=== PATIENT | female | born 1935 | race Caucasian/White ===

== ENCOUNTER 2019-04-12 14:11 | Outpatient (CLI) | payer MEDICARE, SELFPAY ==
--- NOTE | ~2019-04-12 | XR_ITS ---
EXAMINATION: XR knee LT min 4V DATE: 04/12/2019 14:58 INDICATION: Left knee pain. TECHNIQUE: 4 views of left knee were obtained. COMPARISON: None. FINDINGS: Bone alignment is normal. No fracture. There is mild osteoarthritis of medial and patellofe moral compartments. No knee joint effusion. IMPRESSION: 1. Mild left knee osteoarthritis. Reviewed, dictated and finalized at location A. EL CASHIER
--- NOTE | ~2019-04-12 | XR_ITS ---
EXAMINATION: XR lumbar spine 2-3V DATE: 04/12/2019 14:57 INDICATION: Low back pain. TECHNIQUE: Anteroposterior and lateral views of the lumbar spine, and cone-down lateral view of the l umbosacral junction were obtained. COMPARISON: Lumbar spine radiographs dated 08/17/[address] dated 10/22/2016 FINDINGS: 6 nonrib-bearing lumbar segments, L1-L6. Unchanged 5 mm anterolisthesis L5 on L6 severe associated bi lateral facet osteoarthritis. Vertebral body heights are normal. Mild disc height loss at L5 L6. Ute ining disc heights are relatively preserved with mild degenerative endplate changes at L1-L2 and L2-L 3. Mild to moderate facet osteoarthritis in the remainder of the lumbar spine. Sacral arches are inta ct. Mild bilateral sacroiliac osteoarthritis. Subarticular sclerosis anterosuperiorly at one of the f emoral heads to review of prior CT corresponds to a vascular necrosis which can be seen at both femor al heads. IMPRESSION: 1. Unchanged grade 1 anterolisthesis of L5 on L6 with associated mild disc height loss and severe noemy ateral facet osteoarthritis. Lesser spondylosis in the remainder of the lumbar spine. 2. 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 Reviewed, dictated and finalized at location A. RAFT ENGINEER IMPRESSION: 1. Unchanged grade 1 anterolisthesis of L5 on L6 with associated mild disc heig ht loss and severe bilateral facet osteoarthritis. Lesser spondylosis in the re mainder of the lumbar spine. 2. 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
== END 2019-04-12 14:12 | disposition home or self-care (01) ==
PROVIDERS: PCP Internal Medicine; Visit Provider Nurse Practitioner Family
DX: M54.5 Low back pain (principal); M25.562 Pain in left knee
CPT/HCPCS: 72100; 73564

== ENCOUNTER 2020-09-11 13:24 | Outpatient (CLI) | payer MEDICARE, SELFPAY ==
--- NOTE | ~2020-09-11 | DEXA_ITS ---
Bone Density Report Name: Tiffany Mcmahon Age: 85 Sex: Female Ethnicity: White Date of : 1935 Indication: postmenopausal osteoporosis; monitoring treatment; height loss; asthma or emphysema; hysterectomy; secondary osteoporosis; Referring Provider: Sherie, Kavya Quigley Study: Bone densitometry was performed. Exam Date: September 11, 2020 Accession number: [id number] Bone Density: Region BMD T-score Z-score Classification AP Spine(L1-L4) 0.809 -2.2 0.7 Osteopenia Femoral Neck (Left) 0.584 -2.4 0.1 Osteopenia Total Hip (Left) 0.679 -2.2 0.1 Osteopenia Femoral Neck (Right) 0.594 -2.3 0.2 Osteopenia Total Hip (Right) 0.644 -2.4 -0.2 Osteopenia Femoral Neck Mean 0.589 -2.3 0.1 Osteopenia Total Hip Mean 0.661 -2.3 -0.1 Osteopenia World Health Organization criteria for BMD impression classify patients as: Normal (T-score at or above -1.0), Osteopenia (T-score between -1.0 and -2.5), or Osteoporosis (T-score at or below -2.5). 10-year Fracture Risk: FRAX not reported because: Treated for osteoporosis Previous Exams: Region Exam Age BMD T-score BMD Change BMD Change Date g/cm2 vs Baseline vs Previous AP Spine (L1-L4) 09/11/2020 85 0.809 -2.2 0.017 (2.2%)# 0.052 (6.9%)# 07/03/2017 82 0.757 -2.6 -0.035 (-4.4%) 0.001 (0.2%) 11/25/2013 78 0.756 -2.6 -0.036 (-4.6%) -0.036 (-4.6%) 02/15/2008 72 0.792 -2.3 Total Hip(Left) 09/11/2020 85 0.679 -2.2 0.000 (0.0%)# -0.040 (-5.6%) 07/03/2017 82 0.719 -1.8 0.040 (5.9%)* 0.043 (6.3%)* 11/25/2013 78 0.676 -2.2 -0.002 (-0.4%) -0.002 (-0.4%) 02/15/2008 72 0.678 -2.2 Total Hip(Right) 09/11/2020 85 0.644 -2.4 0.240 (59.4%)# 0.211 (48.8%)# 11/25/2013 78 0.433 -4.2 0.029 (7.2%)* 0.029 (7.2%)* 02/15/2008 72 0.404 -4.4 *Denotes significance at 95% confidence level, LSC for AP Spine = 0.022 g/cm2, LSC for Total Hip = 0.027 g/cm2 # Denotes dissimilar scan types or analysis methods Clinical Information Provided by Patient: Has secondary osteoporosis Is being treated for osteoporosis Has used the following medications: Vitamin D, Calcium Has the following medical conditions: Asthma or Emphysema, Hysterectomy Patient maximum height was 62 Menopause Age: 52 No regular weight bearing exercise Drinks caffeinated beverages Onset of menses at age 16 Number of children 4 Impression: The patient has low bone mass, based on the Right
== END 2020-09-11 13:25 | disposition home or self-care (01) ==
LOC: CHSIMG 13:30
PROVIDERS: PCP Internal Medicine; Visit Provider Nurse Practitioner Family
DX: M81.0 Age-related osteoporosis without current pathological fracture (principal)
CPT/HCPCS: 77080

== ENCOUNTER 2020-09-18 13:39 | Outpatient (CLI) | payer MEDICARE, SELFPAY ==
[2020-09-18 14:39] LABS: SARS-CoV-2 RNA PCR Negative (Negative)
== END 2020-09-18 13:40 | disposition home or self-care (01) ==
LOC: CHSLAB 13:42
PROVIDERS: PCP Internal Medicine; Visit Provider Nurse Practitioner Family
DX: J06.9 Acute upper respiratory infection, unspecified (principal); Z20.822 Contact with and (suspected) exposure to COVID-19
CPT/HCPCS: C9803; U0003; U0005

== ENCOUNTER 2021-06-26 09:13 | Outpatient (CLI) | payer MEDICARE, SELFPAY ==
--- NOTE | ~2021-06-26 | CT_ITS ---
EXAMINATION: CT abdomen pelvis wo/w con DATE: 06/26/2021 10:12 INDICATION: Lower abdominal pain, hematuria TECHNIQUE: Computed tomography (CT) of the abdomen and pelvis was performed without intravenous contr ast. CT of the abdomen and pelvis was then performed with a total of 130 mL Omnipaque 350 intravenous contrast using a double-bolus technique for simultaneous opacification of the renal parenchyma and r enal collecting system. The dose-length product (DLP) was 637.11 mGy-cm. Automated exposure control a nd iterative reconstruction technique were employed. COMPARISON: None FINDINGS: Minimal dependent atelectasis is present in the lung bases. There is small sliding hiatal h ernia. The heart size is normal. Punctate calcifications in an otherwise normal spleen likely represe nt healed granulomatous disease. The liver, pancreas, gallbladder, and adrenal glands are normal. No stones are identified in the kidneys, ureters, or bladder. There is no hydronephrosis or hydroureter. No suspicious renal or urothelial lesion is identified. Portions of the ureters are not opacified ho wever no obstructing mass is seen. There is calcified atherosclerosis of the aorta and many of the ot her arteries. No pathologically enlarged abdominal or pelvic lymph nodes are identified. There is no free intraperitoneal gas or evidence of bowel obstruction. Colonic diverticulosis is present without evidence of diverticulitis. There is moderate lumbar spondylosis. IMPRESSION: 1. No CT correlate for the patient's symptoms. No suspicious renal or urothelial lesion identified. N o urinary tract calculi, hydronephrosis, or hydroureter. Reviewed, dictated and finalized at location F. IMPRESSION: 1. No CT correlate for the patient's symptoms. No suspicious renal or urothelia l lesion identified. No urinary tract calculi, hydronephrosis, or hydroureter.
== END 2021-06-26 09:14 | disposition home or self-care (01) ==
PROVIDERS: PCP Internal Medicine; Visit Provider Internal Medicine
DX: R10.9 Unspecified abdominal pain (principal); R31.9 Hematuria, unspecified
CPT/HCPCS: 74178; Q9967

== ENCOUNTER 2021-12-25 11:14 | Emergency (ER) | payer MEDICARE, SELFPAY ==
--- NOTE | ~2021-12-25 | CT_ITS ---
EXAMINATION: CT diagnostic chest wo con DATE: 12/25/2021 11:58 INDICATION: Left-sided chest pain after fall TECHNIQUE: Computed tomography (CT) of the chest was performed without intravenous contrast. The dose -length product (DLP) was 126.43 mGy-cm. Automated exposure control and iterative reconstruction tech nique were employed. COMPARISON: None FINDINGS: There is mild atelectasis. No pleural effusion or pneumothorax. No pathologically enlarged thoracic lymph nodes are identified. The heart size is normal. Calcified coronary artery atherosclero sis is noted. There is a minimally displaced fracture at the posterolateral aspect of the left sevent h rib. There appear to be nondisplaced fractures of the left eighth and ninth ribs. There is moderate thoracic spondylosis. IMPRESSION: 1. Mildly displaced fracture of the left seventh rib and possible nondisplaced fractures of the left eighth and ninth ribs. Reviewed, dictated and finalized at location A.
[2021-12-25 11:19] VITALS: BP 164/96; PULSE 89; RESP 17; TEMP 36.9; O2SAT 96
[2021-12-25 11:35] VITALS: BP 164/96; PULSE 81; RESP 18; TEMP 36.4; O2SAT 95
--- NOTE | 2021-12-25 11:46 | PC.NURSE ---
RN to room to medicate pt. Pt states that she does not want morphine at this time, as she is concerned it will be too strong for her. Pt informed that RN will hold medication and it can be given at any time if pt changes her mind.
--- NOTE | 2021-12-25 12:53 | ED.FALL ---
HPI - Fall General Chief Complaint: Fall Stated Complaint: fell Thursday right side pain goes around back Time Seen by Provider: 12/25/21 11:18 Source: patient, family and RN notes reviewed Mode of arrival: ambulatory Limitations: no limitations History of Present Illness HPI Narrative: left moises-lateral middle ribs painful, after a fall MD complaint: fall Onset (ago): day(s) (3) Fall from: standing Place fall occurred: home Loss of consciousness: none Prolonged down time: no Symptoms prior to fall: none Context: tripped/slipped Location of injury: chest Severity: mild Severity scale (1-10): 4 Quality: dull and aching Associated symptoms (after fall): chest pain (left chest wall pain) Related Data Home Medications Medication Instructions Recorded Confirmed Diovan 1 tablet DAILY 12/25/21 12/25/21 Imitrex 50 mg DAILY PRN Headache 12/25/21 12/25/21 aspirin 81 mg DAILY 12/25/21 12/25/21 fluticasone propionate 220 1 puff inhalation DAILY 12/25/21 12/25/21 mcg/actuation HFA aerosol inhaler (Flovent HFA) hydrochlorothiazide 12.5 mg capsule 12.5 mg DAILY 12/25/21 12/25/21 losartan 50 mg tablet 50 mg DAILY 12/25/21 12/25/21 pantoprazole 20 mg tablet,delayed 20 mg PO DAILY 12/25/21 12/25/21 release Allergies Allergy/AdvReac Type Severity Reaction Status Date / Time amoxicillin Allergy Unknown Unknown Verified 12/25/21 11:28 codeine Allergy Unknown Unknown Verified 12/25/21 11:28 gabapentin Allergy Unknown Unknown Verified 12/25/21 11:28 Sulfa (Sulfonamide Allergy Unknown Unknown Verified 12/25/21 11:28 Antibiotics) Chicken Meat Allergy Severe SOB Uncoded 12/25/21 11:28 Chocolate Allergy Severe SOB Uncoded 12/25/21 11:28 MSG Allergy Severe HEADACHES Uncoded 12/25/21 11:28 ANTIBIOTICS Allergy Unknown PT CANT Uncoded 12/25/21 11:28 REMEMBER Review of Systems Review of Systems: All systems reviewed & are unremarkable except as noted in HPI and below Constitutional: Constitutional: Reports no additional constitutional complaints Eyes: Eyes: Reports no additional eye complaints ENT: Reports system reviewed and no additional complaints, except as documented Cardiovascular: Cardiovascular: Reports no additional cardiovascular complaints Respiratory: Respiratory: Reports no additional respiratory complaints Comments: chest wall pain Gastrointestinal: Gastrointestinal: Reports no additional gastrointestinal complaints Genitourinary: Genitourinary: Reports no additional female genitourinary complaints Musculoskeletal: Musculoskeletal: Reports no additional musculoskeletal complaints Integumentary/Breasts: Skin/Breast: Reports system reviewed and no additional complaints, except as docu Neurologic: Reports system reviewed and no additional complaints, except as documented Psychiatric: Psychiatric: Reports no additional psychiatric complaints Endocrine: Endocrine: Reports no additional endocrine complaints Hematologic/Lymphatic: Hematologic/Lymphatic: Reports no additional hematologic/lymphatic complaints Allergic/Immunologic: Allergic/Immunologic: Reports no additional allergic/immunologic complaints PMFSH Past Medical History Medical History Left rib fracture Family History Family History Sibling Diabetes mellitus Carcinoma of colon Malignant neoplasm of prostate Mother Family history of dementia Other Family history of allergic disorder Hypertension Social History Social History Smoking status: Never smoker Alcohol intake: never Exam Const: General: healthy appearing, no acute distress and well nourished Nutritional Appearance: well nourished Orientation/consciousness: patient oriented x3 Limitations: no limitations HENMT: Head: normal to inspection Ears: external ears normal, TM's normal bilateral
[2021-12-25 13:15] VITALS: BP 161/96; PULSE 85; RESP 16; O2SAT 95
== END 2021-12-25 13:16 | disposition home or self-care (01) ==
PROVIDERS: Emergency Provider Emergency Medicine; PCP Internal Medicine
DX: S22.32XA Fracture of one rib, left side, initial encounter for closed fracture (principal); W19.XXXA Unspecified fall, initial encounter
CPT/HCPCS: 71250; 99284

== ENCOUNTER 2022-10-15 11:21 | Outpatient (CLI) | payer MEDICARE, SELFPAY ==
[2022-10-15 11:37] LABS: Hematocrit 40.5 % (35.0-42.0); Hemoglobin 13.2 g/dL (11.7-13.8); Mean Corpuscular HGB Conc 32.6 g/dL (32.0-36.0); Mean Corpuscular Hemoglobin 30.5 pg (27.0-31.0); Mean Corpuscular Volume 93.5 fL (78.0-102.0); Mean Platelet Volume 9.3 fl (9.2-11.8); Platelet Count Result 332 K/mm3 (150-420); Red Blood Count 4.33 M/mm3 (4.20-5.40); Red Cell Distribution Width 13.2 % (11.6-14.4)
[2022-10-15 11:42] LABS: Appearance Urine Clear (Clear); Bilirubin Urine Negative (Negative); Blood Urine Trace-Intact (Negative); Color Urine Light Yellow (Yellow); Glucose Urine UA Negative (Negative); Ketones Urine Negative (Negative); Leukocyte Esterase Ur Negative (Negative); Nitrate Urine Negative (Negative); Protein Urine Negative (Negative); Urobilinogen Urine 0.2 mg/dL (0.2-1.0)
[2022-10-15 12:23] LABS: Add Urine Microscopic? YES; Bacteria Urine Rare /hpf; RBC Urine None seen /hpf (0-2); Squamous Epithelial Cell Urine Rare /hpf (Few); WBC Urine None seen /hpf (0-3)
[2022-10-15 12:40] LABS: Band Neutrophils Percent 0 % (0-6); Eosinophils Absolute Manual 0.07 K/mm3 (0.02-0.5); Eosinophils Percent Manual 1 % (1-6); Lymphocytes Absolute Manual 3.08 K/mm3 (1.1-4.5); Lymphocytes Percent Manual 44 % (18-44); Monocytes Absolute Manual 0.42 K/mm3 (0.1-0.90); Monocytes Percent Manual 6 % (3-9); Neutrophils Absolute Manual 3.43 K/mm3 (1.7-7.2); Neutrophils Percent Manual 49 % (46-73); Platelet Estimate Adequate (Adequate); Total Cells Counted 100
[2022-10-15 12:56] LABS: Alanine Aminotransferase 13 U/L (14-59); Albumin Level 3.3 g/dL (3.4-5.0); Alkaline Phosphatase 84 U/L (46-116); Anion Gap 10 mmol/L (8-16); Aspartate Amino Transferase 12 U/L (15-37); Bilirubin,Total 0.4 mg/dL (0.00-1.00); Blood Urea Nitrogen 13 mg/dL (7-18); Calcium 9.3 mg/dL (8.5-10.1); Carbon Dioxide 30 mmol/L (21-32); Chloride 100 mmol/L (98-108); Cholesterol 153 mg/dL (0-200); Estimated Glomerular Filt Rate 48; Glucose 91 mg/dL (70-99); HDL Direct 41 mg/dL (40-60); LDL Cholesterol Calculated 59 mg/dL (<130); Osmolality Calculated 290 mOsm/kg (285-295); Sodium 140 mmol/L (136-145); Thyroid Stimulating Hormone 4.18 uIU/mL (0.36-3.74); Total Protein 7.4 g/dL (6.4-8.2); Triglycerides 265 mg/dL (0-150)
[2022-10-19 05:15] LABS: Methylmalonic Acid 213 nmol/L (87-318)
== END 2022-10-15 11:22 | disposition home or self-care (01) ==
LOC: CHSLAB 11:26
PROVIDERS: PCP Internal Medicine; Visit Provider Internal Medicine
DX: I10 Essential (primary) hypertension (principal); E78.5 Hyperlipidemia, unspecified; M81.0 Age-related osteoporosis without current pathological fracture; G31.84 Mild cognitive impairment of uncertain or unknown etiology
CPT/HCPCS: 36415; 80053; 80061; 81001; 83921; 84443; 85025

== ENCOUNTER 2022-10-22 12:01 | Outpatient (CLI) | payer MEDICARE, SELFPAY ==
--- NOTE | ~2022-10-22 | DEXA_ITS ---
Bone Density Report Name: CHINEDU RAINEY Age: 87 Sex: Female Ethnicity: White Date of : 1935 Indication: postmenopausal; screening for osteoporosis; height loss; asthma or emphysema; hysterectomy; Referring Provider: Yo Branch Study: Bone densitometry was performed. Exam Date: October 22, 2022 Accession number: [id number] Bone Density: Region BMD T-score Z-score Classification AP Spine(L1-L4) 0.814 -2.1 0.8 Osteopenia Femoral Neck (Left) 0.594 -2.3 0.2 Osteopenia Total Hip (Left) 0.667 -2.3 0.1 Osteopenia Femoral Neck (Right) 0.556 -2.6 -0.1 Osteoporosis Total Hip (Right) 0.665 -2.3 0.1 Osteopenia Femoral Neck Mean 0.575 -2.5 0.1 Osteoporosis Total Hip Mean 0.666 -2.3 0.1 Osteopenia World Health Organization criteria for BMD impression classify patients as: Normal (T-score at or above -1.0), Osteopenia (T-score between -1.0 and -2.5), or Osteoporosis (T-score at or below -2.5). 10-year Fracture Risk: FRAX not reported because: Some T-score for Spine Total or Hip Total or Femoral Neck at or below -2.5 Treated for osteoporosis Clinical Information Provided by Patient: Is being treated for osteoporosis Has used the following medications: Boniva (i.e. ibandronate), Vitamin D, Calcium Has the following medical conditions: Asthma or Emphysema, Hysterectomy Patient maximum height was 62 Menopause Age: 52 No regular weight bearing exercise Drinks caffeinated beverages Onset of menses at age 16 Number of children 4 Impression: The patient has osteoporosis, based on the Right Femoral Neck T-score. Discussion: It is important to ask patients whether they are taking their medications and to encourage continued and appropriate compliance with their osteoporosis therapies to reduce fracture risk. It is also important to review their risk factors and encourage appropriate calcium and vitamin D intakes, exercise, fall prevention and other lifestyle measures. Follow-Up: Consider a repeat BMD and Vertebral Fracture Assessment (VFA) exam in 2 years or sooner if medically necessary, to reassess this patient's status. Reported by: Dr. Adilson Brantley on 10/22/2022 12:29:00 PM. Reviewed, dictated and finalized at location AOrlando VALENTE
== END 2022-10-22 12:02 | disposition home or self-care (01) ==
LOC: CHSIMG 12:02
PROVIDERS: PCP Internal Medicine; Visit Provider Internal Medicine
DX: Z78.0 Asymptomatic menopausal state (principal); M85.89 Other specified disorders of bone density and structure, multiple sites; M81.0 Age-related osteoporosis without current pathological fracture
CPT/HCPCS: 77080

== ENCOUNTER 2022-10-23 15:09 | Outpatient (CLI) | payer MEDICARE, SELFPAY ==
[2022-10-23 15:27] LABS: Appearance Urine Clear (Clear); Bilirubin Urine Negative (Negative); Blood Urine Trace-Intact (Negative); Color Urine Light Yellow (Yellow); Glucose Urine UA Negative (Negative); Ketones Urine Negative (Negative); Leukocyte Esterase Ur Trace LEU/UL (Negative); Nitrate Urine Negative (Negative); Protein Urine Negative (Negative); Specific Grav Ur <= 1.005 (1.010-1.020); Urobilinogen Urine 0.2 mg/dL (0.2-1.0)
[2022-10-23 15:30] LABS: Add Urine Microscopic? YES; Squamous Epithelial Cell Urine Rare /hpf (Few); WBC Urine 0-5 /hpf (0-3)
[2022-10-23 15:31] LABS: Bacteria Urine Rare /hpf
[2022-10-23 15:49] LABS: Alanine Aminotransferase 14 U/L (14-59); Albumin Level 3.4 g/dL (3.4-5.0); Alkaline Phosphatase 80 U/L (46-116); Anion Gap 10 mmol/L (8-16); Aspartate Amino Transferase 19 U/L (15-37); Bilirubin,Total 0.4 mg/dL (0.00-1.00); Blood Urea Nitrogen 14 mg/dL (7-18); Calcium 9.4 mg/dL (8.5-10.1); Carbon Dioxide 30 mmol/L (21-32); Chloride 100 mmol/L (98-108); Estimated Glomerular Filt Rate 51; Glucose 92 mg/dL (70-99); Osmolality Calculated 290 mOsm/kg (285-295); Potassium 3.8 mmol/L (3.5-5.1); Sodium 140 mmol/L (136-145); Total Protein 7.4 g/dL (6.4-8.2)
[2022-10-27 21:15] LABS: Vitamin D 25 Hydroxy 74 ng/mL (30-100)
== END 2022-10-23 15:10 | disposition home or self-care (01) ==
LOC: CHSLAB 15:12
PROVIDERS: PCP Internal Medicine; Visit Provider Nurse Practitioner Family
DX: M81.0 Age-related osteoporosis without current pathological fracture (principal); I10 Essential (primary) hypertension; R94.4 Abnormal results of kidney function studies; R31.9 Hematuria, unspecified
CPT/HCPCS: 36415; 80053; 81001; 82306

== ENCOUNTER 2022-10-31 11:29 | Outpatient (CLI) | payer MEDICARE, SELFPAY ==
[2022-10-31 11:51] LABS: Appearance Urine Clear (Clear); Bilirubin Urine Negative (Negative); Blood Urine Trace-Intact (Negative); Color Urine Yellow (Yellow); Glucose Urine UA Negative (Negative); Ketones Urine Negative (Negative); Leukocyte Esterase Ur Negative (Negative); Nitrate Urine Negative (Negative); Protein Urine Negative (Negative); Urobilinogen Urine 0.2 mg/dL (0.2-1.0)
[2022-10-31 11:58] LABS: Add Urine Microscopic? YES; Bacteria Urine Trace /hpf; RBC Urine 0-2 /hpf (0-2); WBC Urine None seen /hpf (0-3)
== END 2022-10-31 11:30 | disposition home or self-care (01) ==
LOC: CHSLAB 11:31
PROVIDERS: PCP Internal Medicine; Visit Provider Nurse Practitioner Family
DX: R31.9 Hematuria, unspecified (principal)
CPT/HCPCS: 81001; 87086; 88112

== ENCOUNTER 2022-11-14 12:08 | Outpatient (CLI) | payer MEDICARE, SELFPAY ==
--- NOTE | ~2022-11-14 | US_ITS ---
Renal-Bladder ultrasound Clinical History: Hematuria Technique: Real-time sonographic imaging of the kidneys and urinary bladder was performed. Findings: The right kidney measures 8.3 cm in length and the left kidney measures 7.4 cm. There is no hydronephrosis or renal calculus identified. Renal cortical echogenicity is within normal limits. No renal mass lesion is identified. The urinary bladder is moderately distended at the time of this exam. No intraluminal echoes are iden tified. No abnormal wall thickening is seen. Impression: Unremarkable ultrasound of the kidneys and urinary bladder. Reviewed, dictated and finalized at location M. Impression: Unremarkable ultrasound of the kidneys and urinary bladder.
== END 2022-11-14 12:09 | disposition home or self-care (01) ==
PROVIDERS: PCP Internal Medicine; Visit Provider Nurse Practitioner Family
DX: R31.9 Hematuria, unspecified (principal)
CPT/HCPCS: 76775

== ENCOUNTER 2022-11-25 12:34 | Outpatient (CLI) | payer MEDICARE, SELFPAY ==
[2022-11-25 12:53] VITALS: BMI 17.2
[2022-11-25 12:55] VITALS: BP 156/80; PULSE 72; RESP 14; O2SAT 98
[2022-11-25] MEDS: ZOLEDRONIC ACID 5 MG/100 ML 100 ML 400 MG IVPB (12:55)
--- NOTE | 2022-11-25 13:18 | PC.NURSE ---
Patient here for IV Reclast. Education given. All concerns answered. IV Reclast administered. See MAR. Tolerated well. Safe exit of hospital per amb with dtr.
== END 2022-11-25 12:35 | disposition home or self-care (01) ==
PROVIDERS: PCP Internal Medicine; Visit Provider Internal Medicine
DX: M81.0 Age-related osteoporosis without current pathological fracture (principal)
CPT/HCPCS: 96374; J3489

== ENCOUNTER 2023-05-25 12:06 | Outpatient (CLI) | payer MEDICARE, SELFPAY ==
--- NOTE | ~2023-05-25 | XR_ITS ---
AP lateral views of the left hip Clinical history: Pain Findings: No acute fracture or dislocation is seen. Osseous alignment is anatomic. There is mild left hip joint degenerative change. Soft tissues are unremarkable. Impression: Mild left hip joint degenerative change. Reviewed, dictated and finalized at location . Impression: Mild left hip joint degenerative change.
--- NOTE | ~2023-05-25 | XR_ITS ---
Lumbosacral Spine: AP and lateral views Clinical History: Pain COMPARISON: 04/12/2019 Findings: Stable 1 cm anterolisthesis of L4 over L5. No acute fracture evident. Moderate to advanced facet arthropathy throughout the lumbar spine is similar to prior exam. The intervertebral disc spac es are preserved. The sacroiliac joints are normally outlined. Impression: Stable 1 cm anterolisthesis of L4 over L5. Moderate degenerative spondylosis, similar to prior exam. Reviewed, dictated and finalized at location . Impression: Stable 1 cm anterolisthesis of L4 over L5. Moderate degenerative spondylosis, similar to prior exam.
== END 2023-05-25 12:07 | disposition home or self-care (01) ==
LOC: CHSIMG 12:08
PROVIDERS: PCP Internal Medicine; Visit Provider Internal Medicine
DX: M79.605 Pain in left leg (principal); M43.06 Spondylolysis, lumbar region
CPT/HCPCS: 72100; 73502

== ENCOUNTER 2023-07-21 14:18 | Outpatient (CLI) | payer MEDICARE, SELFPAY ==
[2023-07-21 14:43] LABS: Basophils Absolute Auto 0.08 K/mm3 (0.00-0.10); Eosinophils Absolute Auto 0.16 K/mm3 (0.02-0.50); Hematocrit 41.5 % (35.0-42.0); Hemoglobin 13.5 g/dL (11.7-13.8); Immature Granulocyte Absolute 0.03 K/mm3 (0.00-0.00); Immature Granulocyte Percent A 0.4 % (0.0-0.0); Lymphocytes Absolute Auto 3.11 K/mm3 (1.10-4.50); Lymphocytes Percent Auto 38.9 % (18.0-42.0); Mean Corpuscular HGB Conc 32.5 g/dL (32-36); Mean Corpuscular Hemoglobin 31.1 pg (27.0-31.0); Mean Corpuscular Volume 95.6 fL (78.0-102.0); Mean Platelet Volume 9.5 fl (9.2-11.8); Monocytes Absolute Auto 0.69 K/mm3 (0.10-0.90); Monocytes Percent Auto 8.6 % (2.0-11.0); Neutrophils Absolute Auto 3.93 K/mm3 (1.70-7.20); Neutrophils Percent Auto 49.1 % (50.0-70.0); Platelet Count Result 305 K/mm3 (150-420); Red Blood Count 4.34 M/mm3 (4.20-5.40); Red Cell Distribution Width 13.2 % (11.6-14.4)
[2023-07-21 15:06] LABS: Alanine Aminotransferase 19 U/L (14-59); Albumin Level 3.7 g/dL (3.4-5.0); Alkaline Phosphatase 59 U/L (46-116); Anion Gap 9 mmol/L (4-12); Aspartate Amino Transferase 20 U/L (15-37); Bilirubin,Total 0.7 mg/dL (0.00-1.00); Blood Urea Nitrogen 15 mg/dL (7-18); Calcium 10.1 mg/dL (8.5-10.1); Carbon Dioxide 31 mmol/L (21-32); Chloride 99 mmol/L (98-108); Cholesterol 159 mg/dL (0-200); Estimated Glomerular Filt Rate 58; Glucose 97 mg/dL (70-99); HDL Direct 48 mg/dL (40-60); LDL Cholesterol Calculated 51 mg/dL (<130); Osmolality Calculated 288 mOsm/kg (285-295); Potassium 3.8 mmol/L (3.5-5.1); Sodium 139 mmol/L (136-145); Thyroid Stimulating Hormone 3.41 uIU/mL (0.36-3.74); Total Protein 7.4 g/dL (6.4-8.2); Triglycerides 298 mg/dL (0-150)
== END 2023-07-21 14:19 | disposition home or self-care (01) ==
PROVIDERS: PCP Internal Medicine; Visit Provider Internal Medicine
DX: I10 Essential (primary) hypertension (principal); J45.909 Unspecified asthma, uncomplicated; E78.5 Hyperlipidemia, unspecified
CPT/HCPCS: 36415; 80053; 80061; 84443; 85025

== ENCOUNTER 2023-12-27 00:50 | Emergency (ER) | payer MEDICARE, SELFPAY ==
--- NOTE | ~2023-12-27 | XR_ITS ---
Left Shoulder Technique: AP and scapular Y views were obtained. Clinical History: Pain Findings: There is significant elevation of the distal left clavicle relative to the coracoid, as wel l as widening of the acromioclavicular space. Findings are consistent with grade 3 AC joint separatio n. No acute fracture evident. There is mild glenohumeral joint degenerative change. Subacromial spur present. Soft tissues are unremarkable. Impression: Grade 3 AC joint separation. Degenerative changes, as above. Reviewed, dictated and finalized at location M. Impression: Grade 3 AC joint separation. Degenerative changes, as above.
[2023-12-27 00:51] VITALS: BP 148/96; PULSE 96; RESP 18; TEMP 36.2; O2SAT 95
--- NOTE | 2023-12-27 01:33 | ED.GENADULT ---
HPI - General Adult General Chief complaint: Extremity Injury, Upper Stated complaint: shoulder pain Time Seen by Provider: 12/27/23 00:59 History of Present Illness HPI narrative: Patient experienced a mechanical fall from standing in her garage on 12/26/2023. She states she slipped and fell backwards and on her shoulder. She has says that she might have felt dizzy afterwards but has not been feeling dizzy today. She has been having pain in her left shoulder since that time whether she is able to move that arm. She denies any other injuries in the event. She does not believe that she hit her head or his injuries anywhere else. she denies chest pain or shortness of breath? Related Data Home Medications Medication Instructions Recorded Confirmed Diovan 1 tablet DAILY 12/25/21 11/25/22 Imitrex 50 mg DAILY PRN Headache 12/25/21 11/25/22 aspirin 81 mg DAILY 12/25/21 11/25/22 fluticasone propionate 220 1 puff inhalation DAILY 12/25/21 11/25/22 mcg/actuation HFA aerosol inhaler (Flovent HFA) hydrochlorothiazide 12.5 mg capsule 12.5 mg DAILY 12/25/21 11/25/22 losartan 50 mg tablet 50 mg DAILY 12/25/21 11/25/22 pantoprazole 20 mg tablet,delayed 20 mg PO DAILY 12/25/21 11/25/22 release Allergies Allergy/AdvReac Type Severity Reaction Status Date / Time amoxicillin Allergy Unknown Unknown Verified 12/25/21 11:28 codeine Allergy Unknown Unknown Verified 12/25/21 11:28 gabapentin Allergy Unknown Unknown Verified 12/25/21 11:28 Sulfa (Sulfonamide Allergy Unknown Unknown Verified 12/25/21 11:28 Antibiotics) Chicken Meat Allergy Severe SOB Uncoded 12/25/21 11:28 Chocolate Allergy Severe SOB Uncoded 12/25/21 11:28 MSG Allergy Severe HEADACHES Uncoded 12/25/21 11:28 ANTIBIOTICS Allergy Unknown PT CANT Uncoded 12/25/21 11:28 REMEMBER PMFSH Past Medical History Medical History Left rib fracture Family History Family History Sibling Diabetes mellitus Carcinoma of colon Malignant neoplasm of prostate Mother Family history of dementia Other Family history of allergic disorder Hypertension Social History Social History Smoking status: Never smoker Alcohol intake: never Exam Narrative: GEN: Awake, alert, and appropriate to situation. Well appearing, well nourished, nontoxic, NAD.? HEENT: No rhinorrhea noted, mucous membranes moist. No scleral icterus or conjunctival injection.? CV: Normal rate, regular rhythm, S1S2 no M/G/R. 2+ distal pulses all extremities. No peripheral edema noted.? PULM: Non-labored respiration. Clear to auscultation bilaterally. No wheezes, rales, rhonchi.? GI: Abdomen soft, non -tender to palpation. No rigidity, distention or guarding. ? NEURO: Normal speech. No lateralizing or focal deficits noted.? she has significant ecchymosis and bruising to her trapezius muscle and posterior shoulder. There is no obvious deformity however. Posterior shoulder and trapezius is tender anteriorly nontender nontender over acromioclavicular joint. active range of motion is limited by pain passive range of motion is intact. strength not formally assessed but patient noted to be moving her arm without issue during conversation. Distal circulation is intact. x-ray of the patient's left shoulder does not show any obvious fracture or dislocation possible acute or chronic separation of the AC joint. Course Vital Signs Vital signs: Vital Signs Temperature 36.2 C L 12/27/23 00:51 Pulse Rate 96 12/27/23 00:51 Respiratory Rate 18 12/27/23 00:51 Blood Pressure 148/96 H 12/27/23 00:51 Pulse Oximetry 95 12/27/23 00:51 Temperature 36.2 C L 12/27/23 00:51 Pulse Rate 96 12/27/23 00:51 Respiratory Rate 18 12/27/23 00:51 Blood Pressure 148/96 H 12/27/23 00:51 Pulse Oximetry 95 12/27/23 0
[2023-12-27] MEDS: ACETAMINOPHEN 500 MG TABLET 1000 MG PO (02:09)
[2023-12-27 02:19] VITALS: BP 133/72; PULSE 74; RESP 18; TEMP 36.6; O2SAT 96
== END 2023-12-27 02:19 | disposition home or self-care (01) ==
PROVIDERS: Emergency Provider Family Medicine
DX: M25.512 Pain in left shoulder (principal); W01.0XXA Fall on same level from slipping, tripping and stumbling without subsequent striking against object, initial encounter; Y92.008 Other place in unspecified non-institutional (private) residence as the place of occurrence of the external cause
CPT/HCPCS: 73030; 99283; A4565

== ENCOUNTER 2024-02-18 12:17 | Outpatient (CLI) | payer MEDICARE, SELFPAY ==
[2024-02-18 12:45] VITALS: BP 128/66; PULSE 74; RESP 18; TEMP 36.6; O2SAT 97; BMI 22.8
[2024-02-18] MEDS: ZOLEDRONIC ACID 5 MG/100 ML 100 ML 400 MG IVPB (12:55)
== END 2024-02-18 12:57 | disposition home or self-care (01) ==
PROVIDERS: PCP Internal Medicine; Visit Provider Internal Medicine
DX: M81.0 Age-related osteoporosis without current pathological fracture (principal)
CPT/HCPCS: 96374; J3489

== ENCOUNTER 2024-12-13 11:48 | Outpatient (CLI) | payer MEDICARE, SELFPAY ==
--- NOTE | ~2024-12-13 | CT_ITS ---
EXAMINATION: CTA chest PE protocol DATE: 12/13/2024 16:52 CDT INDICATION: Upper left chest pain. Discomfort. TECHNIQUE: Computed tomographic angiography (CTA) of the chest was performed with 100 mL Omnipaque-350 intravenous contrast. The dose-length product was 156.41 mGy-cm. Maximum intensity projection 3D-reconstructions of the aorta and other arteries were constructed by the technologist on a separate workstation. COMPARISON: CT chest without contrast April 30 FINDINGS: Lungs and pleura: [ No pulmonary emboli identified.] No pneumothorax. No pleural effusion. Small to moderate-sized patchy opacities in the lower lobes. Mediastinum and pulmonary stephanie: [ No mass or adenopathy.] Axillary/intramammary and supraclavicular: [ No mass or adenopathy.] Heart and great vessels: [ Heart is mildly enlarged..[ [ No pericardial effusion.] [ No aneurysm.] Coronary artery calcifications. Chest Wall: [ Unremarkable.] Upper Abdomen: [ No significant findings.] Osseous structures: [ No acute fracture or destructive lesion.] [ Multilevel degenerative change in the visualized spine.] Additional findings: There is a too small to characterize low-attenuation lesion in the liver. IMPRESSION: 1. No pulmonary emboli identified. 2. Small to moderate-sized patchy opacities in the lower lobes. Differential includes atelectasis or infiltrates. Reviewed, dictated and finalized at location Q. IMPRESSION: 1. No pulmonary emboli identified. 2. Small to moderate-sized patchy opacities in the lower lobes. Differential in cludes atelectasis or infiltrates.
[2024-12-13 12:00] LABS: Hematocrit 42.8 % (35.0-42.0); Hemoglobin 13.8 g/dL (11.7-13.8); Mean Corpuscular HGB Conc 32.2 g/dL (32-36); Mean Corpuscular Hemoglobin 30.8 pg (27.0-31.0); Mean Corpuscular Volume 95.5 fL (78.0-102.0); Platelet Count Result 343 K/mm3 (150-420); Red Blood Count 4.48 M/mm3 (4.20-5.40); White Blood Count 9.0 K/mm3 (4.8-10.8)
[2024-12-13 12:12] LABS: Alanine Aminotransferase 15 U/L (6-35); Albumin Level 4.2 g/dL (3.5-5.1); Alkaline Phosphatase 69 U/L (38-126); Anion Gap 8 mmol/L (4-12); Aspartate Amino Transferase 27 U/L (14-36); Bilirubin,Total 0.6 mg/dL (0.2-1.3); Blood Urea Nitrogen 13 mg/dL (7-17); Calcium 10.0 mg/dL (8.4-10.2); Carbon Dioxide 30 mmol/L (22-30); Chloride 99 mmol/L (98-107); Creatine Kinase 59 U/L (30-135); Estimated Glomerular Filt Rate 51; Glucose 96 mg/dL (65-110); Osmolality Calculated 284 mOsm/kg (285-295); Potassium 4.1 mmol/L (3.4-5.0); Sodium 137 mmol/L (137-145); Total Protein 9.1 g/dL (6.3-8.2)
[2024-12-13 12:24] LABS: NT Pro B Type Natriuretic Pept 470 pg/mL (19.9-100); Troponin I < 0.012 ng/mL (0.000-0.034)
--- OUTSIDE RECORDS SUMMARY | 2024-12-13 13:03 | XMS_ITS | Clinical Summary ---
Author Organization [facility] Address [address] [place] [address] Care Team Providers Care Batter Mixer Helper Name Role Phone Unavailable Primary Care Provider Unavailabl e Social History Tobacco Use Types Packs/Day Years Used Date Smoking Tobacco: Never Comments Unknown Sex and Gender Information Value Date Recorded Sex Assigned at Not on file Legal Sex Female 9:55 PM CDT Gender Identity Not on file Sexual Orientation Not on file Last Filed Vital Signs Vital Sign Reading Time Taken Comments Blood Pressure 116/58 08/12/2016 12:27 PM CDT Pulse 94 01/08/2016 11:54 AM CDT Temperature - - Respiratory Rate 18 12/25/2014 1:56 PM CDT R egular Oxygen Saturation - - Inhaled Oxygen Concentration - - Weight 58.1 kg (128 lb) 08/12/2016 12:27 PM CDT Height 154.9 cm (5' 1) 08/12/2016 12:27 PM CDT Body Mass Index 24.19 08/12/2016 12:27 PM CDT Plan of Treatment Health Maintenance Due Date Last Done Comments DTaP, Tdap and Td Vaccines ( 1 - Tdap) 1954 Annual Medicare Wellness Visit 2002 RSV Immunization or 60+ Years (1 - 1-dose 75+ series) 2012 Zoster Vaccines (2 of 3) 05/04/2012 03/09/2012 Pneumococcal Vaccine: 50+ Ye ars (2 of 2 - PCV) 03/09/2015 03/09/2014 COVID-19 Vaccine (1 - 2023-2 5 season) 2024 Influenza Adult (#1) 2024 03/09/2014 Meningococcal B Vaccine Aged Out No l onger eligible based on patient's age to complete this topic Meningococcal Vaccine Aged Out No cecilia elena eligible based on patient's age to complete this topic RSV Immunizations Under 20 Months Aged Out No longer eligible based on patient's age to complete this topic Insurance
--- OUTSIDE RECORDS SUMMARY | 2024-12-13 13:03 | XMS_ITS | Clinical Summary ---
Author Organization [facility] [address] Address [address] [place] [address] Phone Care Team Providers Care Experimental Display Builder Name Role Phone Yo Branch MD Primary Care Provider [phone] Allergies Active Allergy Reactions Criticality Noted Date Comments Amoxicillin Codeine Moxifloxacin Potassium Quinolones Sulfa (Sulfonamide Antibiotics) Medications levalbuterol (XOPENEX) 1.25 mg/3 mL nebulizer solution inhale 3 milliliter (1.25MG) by nebulization route every 8 hours 0 2 Active albuterol HFA (PROAIR HFA) 90 mcg/actuation inhaler INHALE TWO PUFFS EVERY 4 HOURS NEEDED 9 Inhaler 5 3 Active SUMAtriptan (IMITREX) 50 mg tablet take 1 tablet by oral route after onset of migraine; may repeat after 2 hours if headache returns,not to exceed 200mg in 24hrs 0 0 5 Active famotidine (PEPCID) 40 mg tablet take 1 tablet by oral route every day at bedtime 0 0 5 Active simvastatin (ZOCOR) 20 mg tablet take 1 tablet by oral route every day in the evening 0 0 5 Active valsartan-hydro CHLOROthiazide (DIOVAN HCT) 160-12.5 mg per tablet take 1 tablet by oral route every day 0 0 5 Active fluticasone (FLOVENT HFA) 220 mcg/actuation inhaler inhale 1 puff by inhalation route 2 times every day 3 Inhaler 3 5 Active fluticasone (FLONASE) 50 mcg/actuation nasal spray inhale 2 spray by intranasal route every day in each nostril 1 spray 3 5 Active aspirin 81 mg chewable tablet chew 1 tablet by oral route every day 1 0 5 Active raloxifene (EVISTA) 60 mg tablet take 1 tablet by oral route every day 0 0 5 Active triamcinolone (KENALOG) 0.05 % ointmentIndicat ions:Chronic vulvitis Apply 1 g (1 application total) topically 2 (two) times a day. As needed for irritation. 30 g 3 7 Active Active Problems Problem Noted Date Diagnosed Date Osteoporosis 11/21/2014 Overview (06/13/2016): Osteoporosis Dyslipidemia 11/21/2014 Overview (06/13/2016): Dyslipidemia Atopic rhinitis 01/13/2014 Overview (06/13/2016): Allergic rhinitis Solitary pulmonary nodule 01/13/2014 Overview (06/13/2016): Solitary pulmonary nodule Asthma 01/13/2014 Overview (06/13/2016): Asthma Exacerbation of asthma 07/23/2013 Overview (06/12/2016): Asthma exacerbation Acute bronchitis 07/23/2013 Overview (06/12/2016): Acute bronchitis Gastroesophageal reflux disease 07/23/2013 Overview (06/12/2016): Esophageal reflux Hypertension 07/23/2013 Overview (06/13/2016): Hypertension Immunizations Immunization Administration Dates Next Due Pneumococcal Conjugate PCV 13 07/14/2014 Surgical History Surgery Date Site/Laterality Comments APPENDECTOMY Appendectomy CHOLECYSTECTOMY Cholecystectomy KNEE ARTHROPLASTY Knee replacement HIP ARTHROPLASTY Hip replacement OTHER SURGICAL HISTORY lumpectomy 2013 OTHER SURGICAL HISTORY lung bx 2015 CORONARY ANGIOPLASTY Coronary angioplasty OTHER SURGICAL HISTORY Pelvic organ prolapse: Bladder repair OTHER SURGICAL HISTORY Excision vaginal cyst - benign OTHER SURGICAL HISTORY Excision rectal cyst - benign OTHER SURGICAL HISTORY Menorrhagia: Hysterectomy, total - HECTOR-BSO Medical History Medical History Date Comments Hx Other Medical dyslipidemia Hx Other Medical Pelvic organ pr olapse; Comments: RED 11/21/2014 - Hx Other Medical Menorrhagia Family History Medical History Relation Name Comments Prostate cancer Brother 2 Cancer, pros riddle; Cause of : Cancer, prostate Abdominal Aortic Aneurysm Father Ab dominal aortic aneurysm; Cause of : Abdominal aortic aneurysm Coronary artery disease Father Miquel nary artery disease; Brain cancer Maternal Grandmother Cancer, brain; Diabetes Other 1 Family history of Diabetes mellitus; Hypertension Other 2 Family history of Hypertension; Rectal cancer Sister Cancer, rectal ; Relation Name Status Comments Brother 1 Brother 2 Father (Age 59) Maternal Grandmother Other 1 Other 2 Sister Social History Tobacco Use Types Packs/Day Years Used Date Smoking Tobacco: Never Smokeless Tobacco: Never Tobacco Cessation:Counseling Given: Yes Alcohol Use Standard Drinks/Week Comments No 0 (1 standard drink = 0.6 oz pur e alcohol) Comments No Sex and Gender Information Value Date Recorded Sex Assigned at Not on file Legal Sex Female 9: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 Gender Identity Not on file Sexual Orientation Not on file Occupation Industry Job Start Date Job End Date retired Not on file Not on file Not on file Obstetrics History Last Filed Vital Signs Vital Sign Reading Time Taken Comments Blood Pressure 138/94 10/14/2017 2:28 PM CDT Pulse 75 05/18/2015 12:03 PM EAR NOSE THROAT PHYSICIAN Temperature - - Respiratory Rate - - Oxygen Saturation 94% 05/18/2015 12:03 PM EAR NOSE THROAT PHYSICIAN Inhaled Oxygen Concentration - - Weight 58.1 kg (128 lb) 10/14/2017 2:28 PM CDT Height 157.5 cm (5' 2) 10/14/2017 2:28 PM CDT Body Mass Index 23.41 10/14/2017 2:28 PM CDT Plan of Treatment Not on file Insurance [employer] MEDICARE Care Teams Experimental Display Builder Relationship Specialty Start Date End Date Yo Branch MD PCP - General 06/09/11
--- OUTSIDE RECORDS SUMMARY | 2024-12-13 13:03 | XMS_ITS | Patient Health Record ---
Author Organization [facility] Address [address] [place], [place] [id number] Care Team Providers Care Machine Joiner Cementer Name Role Phone REYNA HURLEY Unavailable [phone] Yo Branch Unavailable Unavailable Reason For Referral No Information Medications Medication SIG (Take, Route, Frequency, Duration) Notes Start Date End Date Status 60 ACTUAT fluticasone propionate 0.1 MG/ACTUAT Dry Powder Inhaler [Flovent] INTRAPULMONARY 60 ACTUAT fluticasone propionate 0.1 MG/ACTUAT Dry Powder Inhaler [Flovent]Original [id number] ACTUAT fluticasone propionate 0.1 MG/ACTUAT Dry Powder Inhaler [Flovent] *Reorder from [employer] for eRx and Inter 6 Active Simvastatin 20 MG Oral Tablet ORAL simvastatin 20 MG Oral TabletOriginal Medicationsimvastatin 20 MG Oral Tablet *Reorder from [employer] for eRx and Interaction Alerts* 6 Active [id number] 200 ACTUAT albuterol 0.09 MG/ACTUAT Metered Dose Inhaler INTRAPULMONARY [id number] 200 ACTUAT albuterol 0.09 MG/ACTUAT Metered Dose InhalerOriginal [id number] 200 ACTUAT albuterol 0.09 MG/ACTUAT Metered Dose Inhaler *Reorder from [employer] for eRx and Interaction Alerts* 6 Active aspirin 81 MG Delayed Release Oral Tablet ORAL aspirin 81 MG Delayed Release Oral TabletOriginal Medicationaspirin 81 MG Delayed Release Oral Tablet *Reorder from [employer] for eRx and Interaction Alerts* 6 Active sumatriptan 50 MG Oral Tablet [Imitrex] ORAL sumatriptan 50 MG Oral Tablet [Imitrex]Original Medicationsumatriptan 50 MG Oral Tablet [Imitrex] *Reorder from [facility] for eRx and Interaction Alerts* 6 Active raloxifene hydrochloride 60 MG Oral Tablet ORAL raloxifene hydrochloride 60 MG Oral TabletOriginal Medicationraloxifene hydrochloride 60 MG Oral Tablet *Reorder from [facility] for eRx and Interaction Alerts* 6 Active thioctic acid 100 MG Oral Capsule ORAL thioctic acid 100 MG Oral CapsuleOriginal Medicationthioctic acid 100 MG Oral Capsule *Reorder from [facility] for eRx and Interaction Alerts* 6 Active vitamin E 450 MG Oral Capsule ORAL vitamin E 450 MG Oral CapsuleOriginal Medicationvitamin E 450 MG Oral Capsule *Reorder from [facility] for eRx and Interaction Alerts* 6 Active valsartan 320 MG Oral Tablet [Diovan] ORAL valsartan 320 MG Oral Tablet [Diovan]Original Medicationvalsartan 320 MG Oral Tablet [Diovan] *Reorder from [facility] for eRx and Interaction Alerts* 6 Active Famotidine 40 MG Oral Tablet ORAL famotidine 40 MG Oral TabletOriginal Medicationfamotidine 40 MG Oral Tablet *[facility] for eRx and Interaction Alerts* 6 Active Plan Of Treatment No Information Insurance Providers Payer Name Payer Address Payer Phone Subscriber Number Group Number Insured Name Patient Relationship to Insured Coverage Start Date Coverage End Date Medicare Part B [facility] [address] [place] [address] [id number] CHINEDU RAINEY Self - patient is the insured Shirin Good [facility] [employer] [address] [place] [address] [id number] CHINEDU RAINEY Self - patient is the insured
== END 2024-12-13 11:49 | disposition home or self-care (01) ==
PROVIDERS: PCP Internal Medicine; Visit Provider Internal Medicine
DX: R53.83 Other fatigue (principal); R07.89 Other chest pain; R06.02 Shortness of breath
CPT/HCPCS: 36415; 71275; 80053; 82550; 82553; 83880; 84484; 85027; 85380; Q9967

== ENCOUNTER 2024-12-16 12:25 | Emergency (ER) | payer MEDICARE, SELFPAY ==
[2024-12-16] VITALS (31 sets, daily range): BP systolic 102–154; BP diastolic 59–83; PULSE 65–98; RESP 12–29; TEMP 36.2–36.7; O2SAT 90–96
--- NOTE | ~2024-12-16 | XR_ITS ---
EXAMINATION: XR chest 2V 12/16/2024 12:56 INDICATION: Pneumonia. Follow-up TECHNIQUE:Frontal and lateral images of the chest were obtained. COMPARISON: CTA chest 12/13/2024 FINDINGS: Heart is mildly enlarged. No pneumothorax. No pleural effusion. No free air the diaphragm. Small opacities in the lower lungs. Calcified granuloma in the left lower lung. IMPRESSION: 1. Small opacities in the mid and lower lungs which represents atelectasis/scarring or infiltrates. If symptoms persist or worsen, consider a short-term follow-up study or additional imaging for further assessment. Reviewed, dictated and finalized at location Q. IMPRESSION: 1. Small opacities in the mid and lower lungs which represents atelectasis/scar ring or infiltrates. If symptoms persist or worsen, consider a short-term follow-up study or additio nal imaging for further assessment.
--- NOTE | 2024-12-16 12:26 | ECG_ITS ---
Test Date: 2024-12-16 12:43:49 Measurements Intervals [place] Rate: 91 P: 69 OH: 171 QRS: -48 QRSD: 89 T: 55 QT: 277 QTc: 342 Interpretive Statements SINUS RHYTHM LEFT ANTERIOR FASCICULAR BLOCK BORDERLINE ST-T WAVE ABNORMALITY- ANTEROLATERAL LEADS BASELINE ARTIFACT- I, III, AVR, AVL, AVF, V1-V6 ABNORMAL ECG No previous ECG available for comparison Electronically Signed On 12-16-2024 12:50:16 CDT by Adan Mejia D.O.
[2024-12-16 12:46] LABS: Hematocrit 42.9 % (35.0-42.0); Hemoglobin 13.8 g/dL (11.7-13.8); Immature Granulocyte Percent A 0.5 % (0.0-0.0); Lymphocytes Absolute Auto 2.50 K/mm3 (1.10-4.50); Mean Corpuscular HGB Conc 32.2 g/dL (32-36); Mean Corpuscular Hemoglobin 30.8 pg (27.0-31.0); Mean Corpuscular Volume 95.8 fL (78.0-102.0); Nucleated Red Blood Cells Absolute Auto 0.00 K/mm3 (0.00-0.00); Nucleated Red Blood Cells Perc 0.0 % (0-0.0); Platelet Count Result 356 K/mm3 (150-420); Red Blood Count 4.48 M/mm3 (4.20-5.40); White Blood Count 7.9 K/mm3 (4.8-10.8)
[2024-12-16 12:59] LABS: Alanine Aminotransferase 14 U/L (6-35); Albumin Level 4.1 g/dL (3.5-5.1); Alkaline Phosphatase 74 U/L (38-126); Anion Gap 8 mmol/L (4-12); Aspartate Amino Transferase 29 U/L (14-36); Bilirubin,Total 0.7 mg/dL (0.2-1.3); Blood Urea Nitrogen 15 mg/dL (7-17); Calcium 9.7 mg/dL (8.4-10.2); Carbon Dioxide 29 mmol/L (22-30); Chloride 100 mmol/L (98-107); Estimated CRCL calculation 28 ml/min; Estimated Glomerular Filt Rate 60; Glucose 101 mg/dL (65-110); Lipase 97 U/L (23-300); Osmolality Calculated 284 mOsm/kg (285-295); Potassium 3.8 mmol/L (3.4-5.0); Sodium 137 mmol/L (137-145); Total Protein 8.8 g/dL (6.3-8.2)
[2024-12-16 13:01] LABS: INR 0.9; Prothrombin Time 10.1 Seconds (9.50-12.1)
[2024-12-16 13:10] LABS: NT Pro B Type Natriuretic Pept 250 pg/mL (19.9-100); Troponin I < 0.012 ng/mL (0.000-0.034)
[2024-12-16] MEDS: ONDANSETRON INJ 4 MG/2 ML VIAL IV PUSH (13:43)
[2024-12-16] MEDS: SODIUM CHLORIDE 0.9% IV 1,000 ML 999 ML IV CONT (13:45)
[2024-12-16 13:47] LABS: Add Urine Microscopic? YES; Appearance Urine Sl Cloudy (Clear); Glucose Urine UA Negative (Negative); Leukocyte Esterase Ur 1+ (Negative); Nitrate Urine Negative (Negative); Specific Grav Ur 1.015 (1.010-1.020)
[2024-12-16 14:56] LABS: Troponin I < 0.012 ng/mL (0.000-0.034)
[2024-12-16 15:13] LABS: Procalcitonin 0.1 ng/mL
--- NOTE | 2024-12-16 15:58 | ED.CHESTPAIN ---
HPI - Chest Pain General Chief Complaint: Chest Pain Stated Complaint: PNEUMONIA, CHEST PAIN WITH INSPIRATION Source: patient and family Mode of arrival: wheelchair History of Present Illness HPI narrative: 89-year-old with a history of GERD, chronic bronchitis, hypertension atrial here with a complains of left-sided chest pain since this morning. Patient states that she was diagnosed with pneumonia and UTI and presently not antibiotic. She denies any fever chills has cough which is son nothing unusual for her. Cough is nonproductive. Denies any nausea or vomiting. Pain is mostly on the left side. MD complaint: chest pain Pertinent past history: other ( Chronic bronchitis) Onset (ago): day(s) Timing of current episode: constant Pain location: left chest Pain radiation: none Quality: aching Relieving factors: nothing Exacerbating factors: nothing Context: recent illness Risk Factors Coronary artery disease risk factors: none Related Data Home Medications ?Medication ?Instructions ?Recorded ?Confirmed ?Last Taken ?Type Diovan 1 tablet BYMOUTH DAILY 12/25/21 02/18/24 02/18/24 History Imitrex 50 mg BYMOUTH DAILY PRN Headache 12/25/21 02/18/24 02/18/24 History aspirin 81 mg BYMOUTH DAILY 12/25/21 02/18/24 02/18/24 History fluticasone propionate 220 1 puff inhalation DAILY 12/25/21 02/18/24 Unknown History mcg/actuation HFA aerosol inhaler (Flovent HFA) hydrochlorothiazide 12.5 mg capsule 12.5 mg PO DAILY 12/25/21 02/18/24 02/18/24 History losartan 50 mg tablet 50 mg PO DAILY 12/25/21 02/18/24 02/18/24 History pantoprazole 20 mg tablet,delayed 20 mg PO DAILY 12/25/21 02/18/24 02/18/24 History release Allergies Allergy/AdvReac Type Severity Reaction Status Date / Time amoxicillin Allergy Unknown Unknown Verified 12/16/24 12:50 codeine Allergy Unknown Unknown Verified 12/16/24 12:50 gabapentin Allergy Unknown Unknown Verified 12/16/24 12:50 Sulfa (Sulfonamide Allergy Unknown Unknown Verified 12/16/24 12:50 Antibiotics) Chicken Meat Allergy Severe SOB Uncoded 12/25/21 11:28 Chocolate Allergy Severe SOB Uncoded 10/19/22 11:28 MSG Allergy Severe HEADACHES Uncoded 12/25/21 11:28 ANTIBIOTICS Allergy Unknown PT CANT Uncoded 12/25/21 11:28 REMEMBER Review of Systems Review of Systems: All systems reviewed & are unremarkable except as noted in HPI and below Constitutional: Constitutional: Reports no additional constitutional complaints Eyes: Eyes: Reports no additional eye complaints ENT: Reports system reviewed and no additional complaints, except as documented Cardiovascular: Cardiovascular: Reports as per HPI Respiratory: Respiratory: Reports as per HPI Gastrointestinal: Gastrointestinal: Reports no additional gastrointestinal complaints Musculoskeletal: Musculoskeletal: Reports no additional musculoskeletal complaints Neurologic: Reports system reviewed and no additional complaints, except as documented [facility] Past Medical History Medical History Left rib fracture Family History Family History Sibling Diabetes mellitus Carcinoma of colon Malignant neoplasm of prostate Mother Family history of dementia Other Family history of allergic disorder Hypertension Social History Social History Smoking status: Never smoker Alcohol intake: never Exam Narrative: GENERAL: Well-appearing, well-nourished, and in no acute distress. HEAD: Normocephalic, atraumatic. EYES: PERRLA and EOMI. ENT: Nares clear, no rhinorrhea or epistaxis. Mucous membranes moist. NECK: Supple. CHEST: Clear to auscultation. No respiratory distress. HEART: Regular rate and rhythm. No murmur heard. Normal peripheral pulses. ABDOMEN: Soft, nontender, nondistended, normal active bowel sounds. EXTREMITIES: Normal range of motion. No edema. SKIN: Warm, dry, no rash. NEURO: No focal deficits. Alert and oriented x3. PSYCH: Normal mood and affect. Course Course Emergency Course: patient had a near-syncopal episode mode she was here in the ER she use the restroom while she was coming on other restroom she felt faint and nauseated. She was orthostatic did give a L of fluid along with IV Zofran patient gradually improved. I did inform her about the lab work, chest x-ray findings. Patient feels much better she prefers to go home. Advised to continue home medication, follow with the primary doctor home Vital Signs Vital signs: Vital Signs Temperature 36.2 C L 10/10/25 12:25 Pulse Rate 93 12/16/24 12:25 Respiratory Rate 21 H 12/16/24 12:25 Blood Pressure 138/76 12/16/24 12:25 Pulse Oximetry 94 12/16/24 12:25 Oxygen Delivery Room Air 12/16/24 12:25 Temperature 36.2 C L 12/16/24 12:25 Pulse Rate 76 12/16/24 13:46 Respiratory Rate 14 12/16/24 13:46 Blood Pressure 119/69 12/16/24 13:46 Pulse Oximetry 92 12/16/24 13:46 Oxygen Delivery Room Air 12/16/24 13:00 MDM - Chest Pain Differential Diagnosis Differential diagnosis: Likely fracture of rib, pneumothorax, unstable angina pectoris and atypical chest pain Medical Records Data Attestation: I reviewed the patient's medical records. Lab Data Attestation: I reviewed the patient's lab results. 12/16/24 12:39 12/16/24 12:39 Labs: Lab Results 12/16/24 12/16/24 12/16/24 Range/Units 12:39 13:41 14:29 WBC 7.9 (4.8-10.8) K/mm3 RBC 4.48 (4.20-5.40) M/mm3 Hgb 13.8 (11.7-13.8) g/dL Hct 42.9 H (35.0-42.0) % MCV 95.8 (78.0-102.0) fL MCH 30.8 (27.0-31.0) pg MCHC 32.2 (32-36) g/dL RDW 12.9 (11.6-14.4) % Plt Count 356 (150-420) K/mm3 MPV 9.1 L (9.2-11.8) fl Immature Gran % (Auto) 0.5 H (0.0-0.0) % Neut % (Auto) 56.0 (50.0-70.0) % Lymph % (Auto) 31.8 (18.0-42.0) % [place] % (Auto) 8.1 (2.0-11.0) % Eos % (Auto) 2.8 (1.0-6.0) % Baso % (Auto) 0.8 (0.0-1.0) % Lymph # (Auto) 2.50 (1.10-4.50) K/mm3 [place] # (Auto) 0.64 (0.10-0.90) K/mm3 Eos # (Auto) 0.22 (0.02-0.50) K/mm3 Baso # (Auto) 0.06 (0.00-0.10) K/mm3 Abs Immat Gran (auto) 0.04 H (0.00-0.00) K/mm3 Absolute Neuts (auto) 4.41 (1.70-7.20) K/mm3 Absolute Nucleated RBC 0.00 (0.00-0.00) K/mm3 Nucleated RBC % 0.0 (0-0.0) % PT 10.1 (9.50-12.1) Seconds INR 0.9 Sodium 137 (137-145) mmol/L Potassium 3.8 (3.4-5.0) mmol/L Chloride 100 (98-107) mmol/L Carbon Dioxide 29 (22-30) mmol/L Anion Gap 8 (4-12) mmol/L BUN 15 (7-17) mg/dL Creatinine 0.89 (0.7-1.0) mg/dL Estim Creat Clear Calc 28 ml/min Estimated GFR 60 (59 - ) Glucose 101 (65-110) mg/dL Calculated Osmolality 284 L (285-295) mOsm/kg Calcium 9.7 (8.4-10.2) mg/dL Total Bilirubin 0.7 (0.2-1.3) mg/dL AST 29 (14-36) U/L ALT 14 (6-35) U/L Alkaline Phosphatase 74 (38-126) U/L Troponin I < 0.012 < 0.012 (0.000-0.034) ng/mL NT-Pro-B Natriuret Pep 250 H (19.9-100) pg/mL Total Protein 8.8 H (6.3-8.2) g/dL Albumin 4.1 (3.5-5.1) g/dL Lipase 97 (23-300) U/L Procalcitonin 0.1 ng/mL Urine Color Yellow (Yellow) Urine Appearance Sl cloudy A (Clear) Urine pH 8.5 H (5.0-8.0) Ur Specific [place] 1.015 (1.010-1.020) Urine Protein Negative (Negative) Urine Glucose (UA) Negative (Negative) Urine Ketones Negative (Negative) Ur Blood (Man) Negative (Negative) Urine Nitrate Negative (Negative) Urine Bilirubin Negative (Negative) Urine Urobilinogen 0.2 (0.2-1.0) mg/dL Ur Leukocyte Esterase 1+ H (Negative) Urine RBC None seen (0-2) /hpf Urine WBC 0-5 (0-3) /hpf Ur Squamous Epith Cells Few (Few) /hpf Amorphous Sediment Moderate H (None) Urine Bacteria Trace (None) /hpf Imaging Data Radiologist's impression: ITS Impressions Chest X-Ray 12/16/24 13:05 IMPRESSION: 1. Small opacities in the mid and lower lungs which represents atelectasis/scarring or infiltrates. If symptoms persist or worsen, consider a short-term follow-up study or additional imaging for further assessment. ECG Data EKG #1: ECG completion date: 12/16/24 ECG completion time: 12:43 EKG Interpretation: normal rate (91), no ectopy, no ST changes, normal QRS and left axis Discharge Plan Discharge Clinical Impression: Weakness Chest pain Qualifiers: Chest pain type: unspecified Qualified Code(s): R07.9 - Chest pain, unspecified Patient Disposition: Home Condition: Stable Instructions: Chest Pain (ED) Additional Instructions: continue home medications , follow with your doctor Patient Language: Greek Prescriptions: No Action losartan 50 mg tablet 50 mg PO DAILY pantoprazole 20 mg tablet,delayed release (DR/EC) 20 mg PO DAILY hydrochlorothiazide 12.5 mg capsule 12.5 mg PO DAILY fluticasone propionate [Flovent HFA] 220 mcg/actuation HFA aerosol inhaler 1 puff INHALATION DAILY Diovan 1 tablet BYMOUTH DAILY Rx Instructions: 160/12.5 mg Imitrex 50 mg BYMOUTH DAILY PRN (Reason: Headache) aspirin 81 mg BYMOUTH DAILY acetaminophen [Tylenol] 325 mg capsule 650 mg PO Q8H PRN (Reason: pain) Qty: 20 0RF tramadol 50 mg tablet 50 mg PO BID Qty: 4 0RF Follow-up/Referrals: Yo Branch MD [Primary Care Provider, Internal Medicine] Time of Disposition: 15:59
== END 2024-12-16 15:59 | disposition home or self-care (01) ==
PROVIDERS: Emergency Provider Family Medicine; PCP Internal Medicine
DX: R53.1 Weakness (principal); R07.9 Chest pain, unspecified; I10 Essential (primary) hypertension
CPT/HCPCS: 36415; 71046; 80053; 81001; 83690; 83880; 84145; 84484; 85025; 85610; 93005; 96361; 96374; 99284; J2405; J7030

== ENCOUNTER 2025-01-06 12:56 | Outpatient (CLI) | payer MEDICARE, SELFPAY ==
--- NOTE | ~2025-01-06 | XR_ITS ---
EXAMINATION: XR chest 2V, 01/06/2025 13:15 CDT HISTORY: pneumonia f/u COMPARISON: No comparisons available. Technique: 2 views obtained. Findings: The lungs are clear, no effusion. No pneumothorax. Heart is normal size. Mediastinal and hilar contours are within normal limits. Bony thorax no acute abnormality. Impression: No acute cardiopulmonary abnormality. Reviewed, dictated and finalized at location P. Impression: No acute cardiopulmonary abnormality.
--- OUTSIDE RECORDS SUMMARY | 2025-01-06 13:01 | XMS_ITS | Clinical Summary ---
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 Gender Identity Not on file Sexual Orientation Not on file Occupation Industry Job Start Date Job End Date retired Not on file Not on file Not on file Obstetrics History Last Filed Vital Signs Vital Sign Reading Time Taken Comments Blood Pressure 138/94 10/14/2017 2:28 PM CDT Pulse 75 05/18/2015 12:03 PM BUNDLE SORTER Temperature - - Respiratory Rate - - Oxygen Saturation 94% 05/18/2015 12:03 PM BUNDLE SORTER Inhaled Oxygen Concentration - - Weight 58.1 kg (128 lb) 10/14/2017 2:28 PM CDT Height 157.5 cm (5' 2) 10/14/2017 2:28 PM CDT Body Mass Index 23.41 10/14/2017 2:28 PM CDT Plan of Treatment Not on file Insurance [employer] MEDICARE Care Teams Examination Supervisor Relationship Specialty Start Date End Date Yo Branch MD PCP - General 06/09/11
--- OUTSIDE RECORDS SUMMARY | 2025-01-06 13:01 | XMS_ITS | Clinical Summary ---
Author Organization [facility] Address [address] [place] [address] Care Team Providers Care Batt Machine Operator Name Role Phone Unavailable Primary Care Provider [...] 2 - PCV) 03/09/2015 03/09/2014 COVID-19 Vaccine ( - 2024-2 6 season) 2024 Influenza Adult (#1) 2024 03/09/2014 Hepatitis A Vaccines Aged Out No long er eligible based on patient's age to complete this topic Meningococcal B Vaccine Aged Out No l onger eligible based on patient's age to complete this topic Meningococcal Vaccine Aged Out No cecilia elena eligible based on patient's age to complete this topic RSV Immunizations Under 20 Months Aged Out No longer eligible based on patient's age to complete this topic Insurance
--- OUTSIDE RECORDS SUMMARY | 2025-01-06 13:01 | XMS_ITS | Patient Health Record ---
Author Organization [facility] Address [address] [place], [place] [id number] Care Team Providers Care Cancer Genetics Assistant Name Role Phone REYNA HURLEY Unavailable [phone] Yo Branch Unavailable Unavailable Reason For Referral No Information Medications Medication SIG (Take, Route, Frequency, Duration) Notes Start Date End Date Status 60 ACTUAT fluticasone propionate 0.1 MG/ACTUAT Dry Powder Inhaler [Flovent] INTRAPULMONARY 60 ACTUAT fluticasone propionate 0.1 MG/ACTUAT Dry Powder Inhaler [Flovent]Original [id number] ACTUAT fluticasone propionate 0.1 MG/ACTUAT Dry Powder Inhaler [Flovent] *Reorder from [facility] for eRx and Inter 6 Active Simvastatin 20 MG Oral Tablet ORAL simvastatin 20 MG Oral TabletOriginal Medicationsimvastatin 20 MG Oral Tablet *Reorder from [facility] for eRx and Interaction Alerts* 6 Active [id number] 200 ACTUAT albuterol 0.09 MG/ACTUAT Metered Dose Inhaler INTRAPULMONARY [id number] 200 ACTUAT albuterol 0.09 MG/ACTUAT Metered Dose InhalerOriginal [id number] 200 ACTUAT albuterol 0.09 MG/ACTUAT Metered Dose Inhaler *Reorder from [facility] Scre[facility] for eRx and Interaction Alerts* 6 Active aspirin 81 MG Delayed Release Oral Tablet ORAL aspirin 81 MG Delayed Release Oral TabletOriginal Medicationaspirin 81 MG Delayed Release Oral Tablet *Reorder from [facility] for eRx and Interaction Alerts* 6 Active sumatriptan 50 MG Oral Tablet [Imitrex] ORAL sumatriptan 50 MG Oral Tablet [Imitrex]Original Medicationsumatriptan 50 MG Oral Tablet [Imitrex] *Reorder from [facility] for eRx and Interaction Alerts* 6 Active raloxifene hydrochloride 60 MG Oral Tablet ORAL raloxifene hydrochloride 60 MG Oral TabletOriginal Medicationraloxifene hydrochloride 60 MG Oral Tablet *Reorder from [facility] for eRx and Interaction Alerts* 6 Active thioctic acid 100 MG Oral Capsule ORAL thioctic acid 100 MG Oral CapsuleOriginal Medicationthioctic acid 100 MG Oral Capsule *Reorder from [facility] for eRx and Interaction Alerts* 6 Active vitamin E 450 MG Oral Capsule ORAL vitamin E 450 MG Oral CapsuleOriginal Medicationvitamin E 450 MG Oral Capsule *Reorder from [facility] for eRx and Interaction Alerts* 6 Active valsartan 320 MG Oral Tablet [Diovan] ORAL valsartan 320 MG Oral Tablet [Diovan]Original Medicationvalsartan 320 MG Oral Tablet [Diovan] *Reorder from [facility] for eRx and Interaction Alerts* 6 Active Famotidine 40 MG Oral Tablet ORAL famotidine 40 MG Oral TabletOriginal Medicationfamotidine 40 MG Oral Tablet *Reorder from [facility] for eRx and Interaction Alerts* 6 Active Social History Social History Additional Details Category Social Info Options Details Migrated Social History Migrated Social History Smoking Status : Never smoked , History of tobacco use : Plan Of Treatment No Information Insurance Providers Payer Name Payer Address Payer Phone Subscriber Number Group Number Insured Name Patient Relationship to Insured Coverage Start Date Coverage End Date Medicare Part B [facility] [address] [place] [address] [id number] CHINEDU RAINEY Self - patient is the insured [facility] [employer] [address] [place] [address] [id number] CHINEDU RAINEY Self - patient is the insured
[2025-01-06 13:11] LABS: Hematocrit 43.2 % (35.0-42.0); Hemoglobin 14.0 g/dL (11.7-13.8); Mean Corpuscular HGB Conc 32.4 g/dL (32-36); Mean Corpuscular Hemoglobin 30.8 pg (27.0-31.0); Mean Corpuscular Volume 95.2 fL (78.0-102.0); Platelet Count Result 315 K/mm3 (150-420); Red Blood Count 4.54 M/mm3 (4.20-5.40); White Blood Count 8.5 K/mm3 (4.8-10.8)
[2025-01-06 13:34] LABS: Add Urine Microscopic? YES; Appearance Urine Clear (Clear); Glucose Urine UA Negative (Negative); Leukocyte Esterase Ur 3+ (Negative); Nitrate Urine Negative (Negative); Specific Grav Ur 1.010 (1.010-1.020)
[2025-01-06 13:50] LABS: Alanine Aminotransferase 13 U/L (6-35); Albumin Level 4.3 g/dL (3.5-5.1); Alkaline Phosphatase 66 U/L (38-126); Anion Gap 7 mmol/L (4-12); Aspartate Amino Transferase 26 U/L (14-36); Bilirubin,Total 0.9 mg/dL (0.2-1.3); Blood Urea Nitrogen 12 mg/dL (7-17); CRP < 0.5 mg/dL (<1.0); Calcium 9.7 mg/dL (8.4-10.2); Carbon Dioxide 30 mmol/L (22-30); Chloride 101 mmol/L (98-107); Estimated Glomerular Filt Rate > 60; Glucose 85 mg/dL (65-110); Osmolality Calculated 284 mOsm/kg (285-295); Potassium 4.3 mmol/L (3.4-5.0); Sodium 138 mmol/L (137-145); Total Protein 7.4 g/dL (6.3-8.2)
== END 2025-01-06 12:57 | disposition home or self-care (01) ==
PROVIDERS: PCP Internal Medicine; Visit Provider Internal Medicine
DX: J18.9 Pneumonia, unspecified organism (principal); R53.83 Other fatigue; R30.0 Dysuria
CPT/HCPCS: 36415; 71046; 80053; 81001; 85027; 86140; 87086

== ENCOUNTER 2025-03-07 11:16 | Outpatient (CLI) | payer MEDICARE, SELFPAY ==
[2025-03-07 11:28] VITALS: BP 159/69; PULSE 66; RESP 18; TEMP 36.6; O2SAT 96
[2025-03-07 11:31] VITALS: BMI 20.8
[2025-03-07] MEDS: ZOLEDRONIC ACID 5 MG/100 ML 100 ML 400 MG IVPB (11:43)
--- OUTSIDE RECORDS SUMMARY | 2025-03-07 12:04 | XMS_ITS | Patient Health Record ---
Author Organization [facility] Address [address] [place], [place] [id number] Care Team Providers Care Medication Aide Name Role Phone REYNA HURLEY Unavailable [phone] Yo Branch Unavailable Unavailable Reason For Referral No Information Medications Medication SIG (Take, Route, Frequency, Duration) Notes Start Date End Date Status 60 ACTUAT fluticasone propionate 0.1 MG/ACTUAT Dry Powder Inhaler [Flovent] INTRAPULMONARY 60 ACTUAT fluticasone propionate 0.1 MG/ACTUAT Dry Powder Inhaler [Flovent]Original [id number] ACTUAT fluticasone propionate 0.1 MG/ACTUAT Dry Powder Inhaler [Flovent] *Reorder from [facility] for eRx and Inter 6 Active Simvastatin 20 MG Oral Tablet ORAL simvastatin 20 MG Oral TabletOriginal Medicationsimvastatin 20 MG Oral Tablet *Reorder from [facility] for eRx and Interaction Alerts* 6 Active [id number] 200 ACTUAT albuterol 0.09 MG/ACTUAT Metered Dose Inhaler INTRAPULMONARY [id number] 200 ACTUAT albuterol 0.09 MG/ACTUAT Metered Dose InhalerOriginal [id number] 200 ACTUAT albuterol 0.09 MG/ACTUAT Metered Dose Inhaler *Reorder from [facility] for eRx and Interaction Alerts* 6 Active aspirin 81 MG Delayed Release Oral Tablet ORAL aspirin 81 MG Delayed Release Oral TabletOriginal Medicationaspirin 81 MG Delayed Release Oral Tablet *Reorder from [facility] for eRx and Interaction Alerts* 6 Active sumatriptan 50 MG Oral Tablet [Imitrex] ORAL sumatriptan 50 MG Oral Tablet [Imitrex]Original Medicationsumatriptan 50 MG Oral Tablet [Imitrex] *Reorder from [facility] for eRx and Interaction Alerts* 6 Active raloxifene hydrochloride 60 MG Oral Tablet ORAL raloxifene hydrochloride 60 MG Oral TabletOriginal Medicationraloxifene hydrochloride 60 MG Oral Tablet *Reorder from [facility] for eRx and Interaction Alerts* 6 Active thioctic acid 100 MG Oral Capsule ORAL thioctic acid 100 MG Oral CapsuleOriginal Medicationthioctic acid 100 MG Oral Capsule *Reorder from [facility] for eRx and Interaction Alerts* 6 Active vitamin E 450 MG Oral Capsule ORAL vitamin E 450 MG Oral CapsuleOriginal Medicationvitamin E 450 MG Oral Capsule *Reorder from [facility] for eRx and Interaction Alerts* 6 Active valsartan 320 MG Oral Tablet [Diovan] ORAL valsartan 320 MG Oral Tablet [Diovan]Original Medicationvalsartan 320 MG Oral Tablet [Diovan] *Reorder from [facility] for eRx and Interaction Alerts* 6 Active Famotidine 40 MG Oral Tablet ORAL famotidine 40 MG Oral TabletOriginal Medicationfamotidine 40 MG Oral Tablet *Reorder from [facility] for eRx and Interaction Alerts* 6 [...] [facility] [address] [place] [address] [id number] CHINEDU RAINEY Self - patient is the insured [facility] [employer] [address] [place] [address] [id number] CHINEDU RAINEY Self - patient is the insured
--- OUTSIDE RECORDS SUMMARY | 2025-03-07 12:04 | XMS_ITS | Clinical Summary ---
Author Organization [facility] Address [address] [place] [address] Care Team Providers Care Cut Off Saw Tender Metal Name Role Phone Unavailable Primary Care Provider [...]
--- OUTSIDE RECORDS SUMMARY | 2025-03-07 12:04 | XMS_ITS | Clinical Summary ---
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 Gender Identity Not on file Sexual Orientation Not on file Occupation Industry Job Start Date Job End Date retired Not on file Not on file Not on file Last Filed Vital Signs Vital Sign Reading Time Taken Comments Blood Pressure 138/94 10/14/2017 2:28 PM CDT Pulse 75 05/18/2015 12:03 PM TELEPHONIC NURSE CASE MANAGER Temperature - - Respiratory Rate - - Oxygen Saturation 94% 05/18/2015 12:03 PM TELEPHONIC NURSE CASE MANAGER Inhaled Oxygen Concentration - - Weight 58.1 kg (128 lb) 10/14/2017 2:28 PM CDT Height 157.5 cm (5' 2) 10/14/2017 2:28 PM CDT Body Mass Index 23.41 10/14/2017 2:28 PM CDT Plan of Treatment Not on file Insurance [employer] MED[employer]ARE Care Teams Mold Cleaning And Storage Supervisor Relationship Specialty Start Date End Date Yo Branch MD PCP - General 06/09/11
== END 2025-03-07 12:07 | disposition home or self-care (01) ==
PROVIDERS: PCP Internal Medicine; Visit Provider Internal Medicine
DX: M81.0 Age-related osteoporosis without current pathological fracture (principal)
CPT/HCPCS: 96365; 96374; J3489